=== PATIENT | female | born 1990 | race Hispanic/Latino ===

== ENCOUNTER 2021-01-05 14:18 | Outpatient (CLI) | payer MEDICAID, SELFPAY ==
--- NOTE | ~2021-01-05 | US_ITS ---
EXAMINATION: US OB <=14 wk fetus w TV EXAM DATE: 01/05/2021 15:06 INDICATION: Routine care. 1st trimester. TECHNIQUE: Pelvic obstetrical transabdominal and transvaginal sonogram was performed by a technologgloria piña. There are multiple grayscale and Doppler images available for interpretation. There are no luz maria ier studies of this gestation for comparison. FINDINGS: Uterus measures 11.9 x 8.7 x 7.7 cm, Is retroverted. There is intrauterine gestation sac. pole with heart rate confirmed at 165 beats per minute. The 3.2 cm crown-rump length correspon ds to estimated gestational age by ultrasound of 10 weeks 1 day, estimated date of confinement 2020. Yolk sac is identified. There is no sonographic evidence of subchorionic hemorrhage. The o varies are identified and are morphologically normal. Doppler flow confirmed within both ovaries. IMPRESSION: Retroverted uterus with live gestation, age by ultrasound 10 weeks 1 day. Reviewed, dictated and finalized at location A.
== END 2021-01-05 14:19 | disposition home or self-care (01) ==
LOC: ANHIMG 14:26
PROVIDERS: PCP Obstetrics & Gynecology; Visit Provider Physician Assistant
DX: O34.531 Maternal care for retroversion of gravid uterus, first trimester (principal); N85.4 Malposition of uterus
CPT/HCPCS: 76801; 76817

== ENCOUNTER 2021-04-13 10:16 | Outpatient (CLI) | payer OTHER, SELFPAY ==
--- NOTE | ~2021-04-13 | US_ITS ---
EXAMINATION: US OB /maternal detail EXAM DATE: 04/13/2021 11:49 INDICATION: Encntr for suprvsn norm preg, 2nd trimester. 2nd trimester. TECHNIQUE: Pelvic obstetrical transabdominal sonogram was performed by a technologist. There are mu ltiple grayscale and Doppler images available for interpretation. Comparison is made to prior examina tion from 01/05/2021. FINDINGS: There is a single fetus identified in vertex presentation with a heart rate of 131 beats pe r minute. The placenta is located in the posterior position. There is no sonographic evidence of ret roplacental hemorrhage identified. The amniotic fluid index is 20.5 centimeters, which is normal. The 5th -- 95th percentile range is 9.5-21.4 cm. BIOMETRIC DATA: Biparietal diameter (BPD): 5.9 cm ----------------> 24 weeks 1 day. Head circumference (HC): 21.7 cm ----------------> 23 weeks 5 days. Abdominal circumference (AC): 18.3 cm ----------> 23 weeks 1 day. Femur length (FL): 4.1 cm --------------------------> 23 weeks 1 day. These measurements are concordant. HC/AC ratio is 1.18 (The 5th -- 95th percentile range is 1.05-1.21. Estimated weight is 575 g +/- 86 g. This is the 10th percentile when the currently reported cl inical gestation age 24 weeks 1 day, clinical estimated date of delivery (COLTEN-OPE) 08/02 is used. Fet al estimated gestational age based on measurements from this exam is 23 weeks 4 days, with an estimat ed date of delivery (COLTEN-AUA) 08/06. ANATOMIC SURVEY: The following anatomy is identified and is sonographically normal in appearance: Cerebral ventricles Cerebellum Cisterna magna CTL-spine Four-chamber heart Diaphragm Stomach Kidneys Bladder Three-vessel cord Cord insertion Cavum septum pellucidum. The nuchal fold was suboptimally seen, but no thickening suspected. IMPRESSION: 1. Single fetus in vertex presentation with heart rate 131 beats per minute. 2. Estimated weight of 575 grams, 10th percentile using the currently reported clinical gestat ion age of 24 weeks 1 day, COLTEN(OPE) 08/02. 3. ANTONIO 20.5 cm, normal. 4. Visualized anatomy sonographically normal. Reviewed, dictated and finalized at location A. IMPRESSION: 1. Single fetus in vertex presentation with heart rate 131 beats per minute. 2. Estimated weight of 575 grams, 10th percentile using the currently re ported clinical gestation age of 24 weeks 1 day, COLTEN(OPE) 08/02. 3. ANTONIO 20.5 cm, normal. 4. Visualized anatomy sonographically normal.
== END 2021-04-13 10:17 | disposition home or self-care (01) ==
PROVIDERS: PCP Obstetrics & Gynecology; Visit Provider Physician Assistant
DX: Z34.92 Encounter for supervision of normal pregnancy, unspecified, second trimester (principal); Z3A.24 24 weeks gestation of pregnancy
CPT/HCPCS: 76805

== ENCOUNTER 2021-07-17 07:20 | Outpatient (RCR) | payer OTHER, SELFPAY ==
--- NOTE | ~2021-07-17 | US_ITS ---
EXAMINATION: US OB BPP wo non-stress DATE: 07/17/2021 09:51 CDT INDICATION: Gestational diabetes TECHNIQUE: Real-time transabdominal obstetric ultrasound. FINDINGS: Comparison to 04/13/2021 There is a single living fetus in vertex presentation. The placenta is posterior to the left without placenta previa. cardiac activity and movement is noted with a heart rate of 142 beats per minute. Biophysical profile: breathin of 2 movement: 2 of 2 tone: 2 of 2 Amniotic flud pocket: 2 of 2 Total score: 8 of 8 IMPRESSION: 1. Single living intrauterine in vertex presentation. 2: Total biophysical profile score of 8/8. Reviewed, dictated and finalized at location A.
[2021-07-17 08:36] VITALS: BP 121/81; PULSE 79
== END 2021-08-30 10:33 | disposition home or self-care (01) ==
LOC: ANHOBOP 07:20
PROVIDERS: PCP Physician Assistant; Visit Provider Obstetrics & Gynecology
DX: O24.419 Gestational diabetes mellitus in pregnancy, unspecified control (principal); Z3A.00 Weeks of gestation of pregnancy not specified
CPT/HCPCS: 59025; 76819

== ENCOUNTER 2021-07-23 06:57 | Inpatient (IN) | payer OTHER, SELFPAY ==
--- NOTE | 2021-07-22 22:44 | PM.IMHP ---
H&P: HPI History of Present Illness Date/Time: 07/22/21 22:44 31 y/o female presents for Repeat low-transverse section with bilateral tubal sterilization at 38wk4d. Patient had previous section and was going to have a repeat at [facility] in [place] with Maternal- Medicine however she desires bilateral tubal sterilization and was referred back to me to perform the repeat with her bilateral tubal sterilization @ 37-38 weeks I explained her condition procedure and risks involved including but not limited to bleeding infection injury to bladder bowel baby pelvic vessels DVT pneumonia wound infections endometriosis UTI hemorrhage so the risk of anesthesia she understands all this accepts and agrees to proceed. Her c/b deliveries by , MTHFR, GBS carrier, varicella non immune, gestational diabetes GDM A2, obesity. Following with [facility] for GDM, twice weekly antepartum testing. No concerns today. Having irregular contractions. Denies LOF, bleeding. +FM care began 12/14/2020 at [facility] she had a total of 13 visits with evaluated with non invasive testing negative for anomalies screens ultrasounds normal interval growth GDM positive controlled with insulin GBS positive She understands tubal sterilization is permanent irreversible she does not desire future fertility she understands failure rate of 3 to 01/1000 with increased risk of ectopic and its sequelae she understands accepts and agrees to proceed informed consent obtained [place] [employer] Public [employer] tubal consent forms have been signed and are in chart. Chief Complaint: previous section desires repeat section multiparity desires bilateral tubal sterilization Gestational diabetes class A2 on insulin high-risk specialist desires delivery 37-38 weeks Review of Systems Review of Systems: All systems reviewed & are unremarkable except as noted in HPI and below Constitutional: Constitutional: Reports no additional constitutional complaints Eyes: Eyes: Reports no additional eye complaints ENT: Reports system reviewed and no additional complaints, except as documented Cardiovascular: Cardiovascular: Reports no additional cardiovascular complaints Respiratory: Respiratory: Reports no additional respiratory complaints Gastrointestinal: Gastrointestinal: Reports no additional gastrointestinal complaints Genitourinary: Genitourinary: Reports no additional female genitourinary complaints Musculoskeletal: Musculoskeletal: Reports no additional musculoskeletal complaints Integumentary/Breasts: Skin/Breast: Reports system reviewed and no additional complaints, except as docu Neurologic: Reports system reviewed and no additional complaints, except as documented Psychiatric: Psychiatric: Reports no additional psychiatric complaints Endocrine: Endocrine: Reports no additional endocrine complaints Hematologic/Lymphatic: Hematologic/Lymphatic: Reports no additional hematologic/lymphatic complaints Allergic/Immunologic: Allergic/Immunologic: Reports no additional allergic/immunologic complaints PMFSH Past Medical History Medical History Anemia affecting Bacterial vaginosis Candidiasis of vagina Encounter for female sterilization procedure External hordeolum GBS (group B Streptococcus carrier), +RV culture, currently Gestational diabetes mellitus, class A2 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 M, 9lbs, Repeat Delivery by section 02-16-2016, 39.3 wks 1. F, 8lbs, Repeat Rickyi
--- NOTE | 2021-07-22 22:51 | WPDOBADMIT ---
Obstetrics - Admit Note Admission Note: record reviewed. No pertinent additions to the history and/or any subsequent changes in the physical findings that are not consistent with the expected course of the were found. Additions to the history and/or subsequent changes in the physical findings follow. None. 07/22/21 22:44 31 y/o female presents for Repeat low-transverse section with bilateral tubal sterilization at 38wk4d. Patient had previous section and was going to have a repeat at [facility] in [place] with Maternal- Medicine however she desires bilateral tubal sterilization and was referred back to me to perform the repeat with her bilateral tubal sterilization @ 37-38 weeks I explained her condition procedure and risks involved including but not limited to bleeding infection injury to bladder bowel baby pelvic vessels DVT pneumonia wound infections endometriosis UTI hemorrhage so the risk of anesthesia she understands all this accepts and agrees to proceed. Her c/b deliveries by , MTHFR, GBS carrier, varicella non immune, gestational diabetes GDM A2, obesity. Following with [facility] for GDM, twice weekly antepartum testing. No concerns today. Having irregular contractions. Denies LOF, bleeding. +FM care began 12/14/2020 at [facility] she had a total of 13 visits with evaluated with non invasive testing negative for anomalies screens ultrasounds normal interval growth GDM positive controlled with insulin GBS positive She understands tubal sterilization is permanent irreversible she does not desire future fertility she understands failure rate of 3 to 01/1000 with increased risk of ectopic and its sequelae she understands accepts and agrees to proceed informed consent obtained [place] department [employer] Public aid tubal consent forms have been signed and are in chart.
[2021-07-23] VITALS (48 sets, daily range): BP systolic 82–118; BP diastolic 40–61; PULSE 35–81; RESP 16–20; TEMP 35.9–36.6; O2SAT 89–100; BMI 37.1
--- NOTE | 2021-07-23 03:24 | P.HPUP_ITS ---
History and Physical Update Update Date/Time: 07/22/21 22:52 History and Physical has been reviewed, including an updated exam of the patient. There are NO changes in the patient's condition. Risks, benefits, and alternatives have been discussed and questions answered. Patient agrees to proceed with procedure. 07/22/21 22:44 31 y/o female presents for Repeat low-transverse section with bilateral tubal sterilization at 38wk4d. Patient had previous section and was going to have a repeat at [facility] in [place] with Maternal- Medicine however she desires bilateral tubal sterilization and was referred back to me to perform the repeat with her bilateral tubal sterilization @ 37-38 weeks I explained her condition procedure and risks involved including but not limited to bleeding infection injury to bladder bowel baby pelvic vessels DVT pneumonia wound infections endometriosis UTI hemorrhage so the risk of anesthesia she understands all this accepts and agrees to proceed. Her c/b deliveries by , MTHFR, GBS carrier, varicella non immune, gestational diabetes GDM A2, obesity. Following with [facility] for GDM, twice weekly antepartum testing. No concerns today. Having irregular contractions. Denies LOF, bleeding. +FM care began 12/14/2020 at [facility] she had a total of 13 visits with evaluated with non invasive testing negative for anomalies screens ultrasounds normal interval growth GDM positive controlled with insulin GBS positive She understands tubal sterilization is permanent irreversible she does not desire future fertility she understands failure rate of 3 to 01/1000 with increased risk of ectopic and its sequelae she understands accepts and agrees to proceed informed consent obtained [place] department [employer] Public aid tubal consent forms have been signed and are in chart.
[2021-07-23] MEDS: LACTATED RINGERS 1,000 ML 125 ML IV CONT (08:27)
--- NOTE | 2021-07-23 08:40 | PC.NURSE ---
This patient, Lora Patel, was admitted to OB Post 116 on 07/23/21 at 06:57. Plans for , pain management and were discussed with patient. Patient/family oriented to hospital policies and general routines including ID bracelet, bed and alarms, visiting hours, pain management, procedures, bathroom and other care routines, personal items, smoking policy, room service/diet and guest tray routines, security routines, and visiting hours. Patient/Family are encouraged to report perceived risks to care and to ask questions if they do not understand what they are told or what they should do. See OBIX
[2021-07-23 09:05] LABS: Basophils Percent Auto 0.3 % (0.2-1.2); Eosinophils Absolute Auto 0.1 K/mm3 (0-0.3); Hematocrit 34.7 % (37.0-47.0); Hemoglobin 10.8 g/dL (12.0-15.0); Immature Granulocyte Absolute 0.04 K/mm3 (0.00-0.031); Immature Granulocyte Percent A 0.7 % (0-0.5); Immature Platelet Fraction Pct 14.4 % (0.9-11.2); Lymphocytes Absolute Auto 1.66 K/mm3 (0.9-3.2); Lymphocytes Percent Auto 27.7 % (18.3-44.2); Mean Corpuscular HGB Conc 31.1 g/dl (32-36); Mean Corpuscular Hemoglobin 26.2 pg (26-34); Mean Corpuscular Volume 84.2 fl (80-100); Mean Platelet Volume 12.9 fl (7.4-10.4); Monocytes Absolute Auto 0.4 K/mm3 (0.1-0.6); Monocytes Percent Auto 5.8 % (2.6-8.5); Neutrophils Absolute Auto 3.9 K/mm3 (1.3-6.7); Neutrophils Percent Auto 64.5 % (45.5-73.1); Platelet Count Result 173 k/mm3 (150-375); Red Blood Count 4.12 M/mm3 (4.2-5.4); Red Cell Distribution Width 14.5 % (11.5-14.5)
--- NOTE | 2021-07-23 09:15 | PM.OBPRVD ---
OB - Delivery Note Procedure Delivery date: 07/23/21 Procedure: Procedures Operation Date: 07/23/21 09:00 repeat low transverse section with delivery of viable male and placenta. bilateral tubal sterilization with complete bilateral salpingectomy. events: Previous and Gestational Diabetes ( GDM A2 on insulin) Intrapartal events: None and Other ( desires sterilization) Induction method: none Route of delivery: ( repeat low-transverse) Episiotomy description: None Laceration Description: None Specimen: Yes ( placenta cord blood and cord blood gases) Quantitative Blood Loss (ml): 370 Anesthesia type: Spinal ( spinal Duramorph) Disposition: floor Complications: none Narrative: see detailed procedure note Baby Date of : 07/23/21 Time of : 10:15 Weeks of gestation at delivery: 38 Infant gender: Male Weight (pounds): 7 Weight (ounces): 2 presentation: vertex position: Left Occiput Anterior Placenta delivery description: Manual Removal and Normal Configuration cord vessel description: 3 Vessels score one minute: 9 score five minutes: 9 Narrative: normal transition to nursery taken in stable condition. Normal exam
--- NOTE | 2021-07-23 09:18 | W.PM.PROC2 ---
Procedure Note - Detailed Date of Procedure 07/23/21 Pre-op Diagnosis elective repeat section female sterilization gestational diabetes A2 on insulin GBS positive MTHFR mutation recurrent loss maternal varicella nonimmune Anemia affect in Post-op Diagnosis same ( elective repeat section- delivered female sterilization gestational diabetes A2 on insulin GBS positive MTHFR mutation recurrent loss maternal varicella nonimmune Anemia affect in ) Procedure Performed Repeat low-transverse section with delivery of viable male infant and placenta. Bilateral tubal sterilization with complete bilateral salpingectomy. Surgeon Say Garcia MD [employer] Edwige Figueroa, certified surgical technician and JEYSON Ramirez student Anesthesia spinal ( Duramorph) Indications previous and desires repeat . Desires bilateral tubal sterilization Findings viable male infant delivered at 10:15 a.m. on 07/23/2021. weighed 7 lb 2 oz. score at 1 minute 9 at 5 minutes 9 normal transition in nursery in stable condition. placenta delivered intact with three-vessel cord clear amniotic fluid at time of delivery uterus, tubes and ovaries normal. Cul-de-sac of any blood clots. pedicles hemostatic after sterilization procedure quantitative blood loss: 370 mL IV fluids: 1000 mL normal saline Geronimo catheter output: 200 counts correct. Ancef 3 g VTE prevention SCDs no complications. patient taken to recovery room Description of Procedure patient was consented and taken operating room for desired repeat low-transverse section and bilateral tubal sterilization. She was placed in the sitting position and spinal anesthetic was administered. Patient was placed in the supine position a Geronimo catheter is inserted. The abdomen was draped in sterile fashion. A time-out was performed. Sterile drapes were placed. An elliptical incision was performed on the old incision site. The old scar was removed using electrocautery bilaterally. The [place] clamps were placed on the lateral fashion to identify the superior and inferior abdominal fashion to undermine with electrocautery. Next the rectus muscles were incised in the midline using electrocautery the peritoneum was digitally dissected. Confirmation of the vertex incision of the fetus. Followed by low transverse incision to the lower uterus followed by bilateral cautery. The amniotic sac was manually broken with clear amniotic fluid identified. Fundal pressure was used delivery of vertex fetus to the abdominal incision. The was placed on maternal abdomen the cord was cut and clamped, the mouth was suctioned, spontaneous respirations and cry. then the baby was handed to nursery nurse in attendance. The was delivered at on 07/23/2021 at 10 15 a.m.. Male weighing 7 lb 2 oz , scores at 1 minute 9 and 5 minutes 9. normal transition from intrauterine to extrauterine environment. Normal exam and taken to nursery in stable condition. the placenta was delivered with 3 vessel cord intact, cord blood and cord blood gases were obtained. The uterus was externalized blood clots removed from her intrauterine cavity. The uterus contracted normally is Pitocin given intravenously and 10 units injection of the myometrium. the uterine incision was repaired with 2 layers of 0 Vicryl in a running interlocking fashion. The 2nd stage was an imbricating stitch overlying the 1st. the bilateral tubal sterilization was performed in a bilateral sequential fashion using following techniques. The fallopian tubes were traced out to the fimbriated aspect. the mesosalpinx was endo coagulated. Clamps were placed across the proximal fallopian tubes, the arcuate vessel and the fimbria ovarian vessel, electrocautery was used to excise the fallopian tubes bilaterally. These were handed off for pathol
--- NOTE | 2021-07-23 09:20 | PC.NURSE ---
Nehemias translation line called for screening questions and to verify with pt while alone that she wants to do all translation for her.
--- NOTE | 2021-07-23 09:24 | WPDANESEPPF ---
Anes - Initial Pre Proc Eval Procedure: Operation Date: 07/23/21 09:00 Proposed Procedures p Repeat Section with Bilateral Salpingectomy - Say Garcia MD Date/Time: 07/23/21 09:24 Surgeon: Say Garcia MD Pre Op Diagnosis: C/S Patient Data Age: 31 Gender: F Height: 1.68 m Weight: 104.5 kg Last Vital Signs Pulse 70 07/23/21 08:15 BP 102/58 L 07/23/21 08:15 Allergies Allergy/AdvReac Type Severity Reaction Status Date / Time No Known Allergies Allergy Verified 07/23/21 07:41 Home Medications Medication Instructions Recorded Confirmed Type insulin NPH isoph U-100 human 10 unit SUBCUT HS 07/23/21 07/23/21 History [Humulin N NPH Insulin KwikPen] metformin 500 mg PO BID 07/23/21 07/23/21 History Laboratory Tests 07/23/21 07/23/21 07/23/21 08:06 08:06 08:21 WBC 6.0 K/mm3 K/mm3 (4.5-10.0) RBC 4.12 M/mm3 L M/mm3 (4.2-5.4) Hgb 10.8 g/dL L g/dL (12.0-15.0) Hct 34.7 % L % (37.0-47.0) MCV 84.2 fl fl (80-100) MCH 26.2 pg pg (26-34) MCHC 31.1 g/dl L g/dl (32-36) RDW 14.5 % % (11.5-14.5) Plt Count 173 k/mm3 k/mm3 (150-375) MPV 12.9 fl H fl (7.4-10.4) Immature Gran % (Auto) 0.7 % H % (0-0.5) Neut % (Auto) 64.5 % % (45.5-73.1) Lymph % (Auto) 27.7 % % (18.3-44.2) Stevens % (Auto) 5.8 % % (2.6-8.5) Eos % (Auto) 1.0 % % (0-4.4) Baso % (Auto) 0.3 % % (0.2-1.2) Lymph # (Auto) 1.66 K/mm3 K/mm3 (0.9-3.2) Stevens # (Auto) 0.4 K/mm3 K/mm3 (0.1-0.6) Eos # (Auto) 0.1 K/mm3 K/mm3 (0-0.3) Baso # (Auto) 0.0 K/mm3 K/mm3 (0.0-0.1) Abs Immat Gran (auto) 0.04 K/mm3 H K/mm3 (0.00-0.031) Absolute Neuts (auto) 3.9 K/mm3 K/mm3 (1.3-6.7) Absolute Nucleated RBC 0.0 K/mm3 K/mm3 (0.0-0.012) Nucleated RBC % 0.0 % % (0.0-0.2) % Immature Plt Fraction 14.4 % H % (0.9-11.2) RPR Pending HIV 1&2 Ab/P24 Ag 4thGn Pending Patient hx anesthesia problems: none Family hx anesthesia problems: none Results Review: All pre-operative results and documents have been reviewed as part of the pre-operative evaluation. FORMERLY [facility], [facility] Past Medical History Medical History Anemia affecting Bacterial vaginosis Candidiasis of vagina Encounter for female sterilization procedure External hordeolum GBS (group B Streptococcus carrier), +RV culture, currently Gestational diabetes mellitus, class A2 Heterozygous MTHFR mutation [id number] Maternal varicella, non-immune Recurrent loss UTI (urinary tract infection) Surgical History Surgical History Delivery by section 08-27-2018, 38 wks 1. M, 9lbs, Repeat Delivery by section 02-16-2016, 39.3 wks 1. F, 8lbs, Repeat Delivery by section 02-18-2014, 40 wks 1. F, Repeat Delivery by section 12-19-2011, 40 wks 1. M, Repeat Previous section complicating 09-10-2009 1. F, Primary Family History Family History Mother Diabetes mellitus Social History Social History Smoking status: Never smoker Anes - Eval Final PreProcedure Day of Procedure 07/23/21 09:24 Patient weight: obese Heart: regular rate and rhythm Lungs: clear to auscultation Airway: Mallampati scale class III Neurological: other (alert) Last oral intake: >/= 8 hours ASA classification: III Emergent: no Anesthetic plan: proceed Anesthesia type and monitoring: regional spinal and standard monitoring Other findings: interview per pharmacist
[2021-07-23 09:27] LABS: HIV 1/2 Ab P24 Ag Result Negative (Negative)
[2021-07-23 09:32] LABS: Glucose Point of Care 79 mg/dl (65-105)
[2021-07-23] MEDS: ceFAZolin 2 GM/D5W 50 ML 2 GM/50 ML BAG IVPB (09:50)
--- NOTE | 2021-07-23 09:50 | PC.NURSE ---
Pt to OR per stretcher.
[2021-07-23] MEDS: OXYTOCIN 10 UNITS/ML VIAL IM (10:17)
[2021-07-23] MEDS: MORPHINE SULFATE (*CRX) 2 MG/ML INJ 3 MG IV PUSH ×3 (11:27→13:02)
[2021-07-23] MEDS: KETOROLAC 30 MG/ML VIAL (*BKC) IV PUSH ×3 (11:50→23:47)
[2021-07-23 12:02] LABS: Rapid Plasma Reagin Non-Reactive (NonReactive)
[2021-07-23] MEDS: OXYTOCIN 30 UNITS/NS 500 ML 30 UNITS/500 ML BAG 125 UNITS IV CONT (13:02)
--- NOTE | 2021-07-23 13:20 | OBPPTRN ---
Patient transferred to post room # 286 via stretcher. Support person present. Oriented to unit, room, information board, rooming in, admission packet and security measures. Patient verbalizes understanding.
[2021-07-23] MEDS: DEXTROSE 5%/0.45% SOD CHL 1,000 ML 125 ML IV CONT (17:35)
[2021-07-23] MEDS: DOCUSATE SODIUM 100 MG CAPSULE PO (17:35)
[2021-07-23] MEDS: HYDROcodone/acetaminophen (*CRX) 5-325 MG TABLET 1 TAB PO (20:00)
[2021-07-24 03:35] VITALS: BP 103/57; PULSE 79; RESP 16; TEMP 36.1
[2021-07-24] MEDS: HYDROcodone/acetaminophen (*CRX) 5-325 MG TABLET 1 TAB PO ×3 (03:44→18:29)
[2021-07-24 04:45] LABS: Basophils Percent Auto 0.2 % (0.2-1.2); Eosinophils Absolute Auto 0.1 K/mm3 (0-0.3); Eosinophils Percent Auto 1.3 % (0-4.4); Hematocrit 32.4 % (37.0-47.0); Hemoglobin 10.1 g/dL (12.0-15.0); Immature Granulocyte Absolute 0.01 K/mm3 (0.00-0.031); Immature Granulocyte Percent A 0.2 % (0-0.5); Lymphocytes Absolute Auto 1.39 K/mm3 (0.9-3.2); Mean Corpuscular HGB Conc 31.2 g/dl (32-36); Mean Corpuscular Hemoglobin 26.3 pg (26-34); Mean Corpuscular Volume 84.4 fl (80-100); Mean Platelet Volume 12.7 fl (7.4-10.4); Monocytes Absolute Auto 0.3 K/mm3 (0.1-0.6); Monocytes Percent Auto 5.4 % (2.6-8.5); Neutrophils Absolute Auto 3.8 K/mm3 (1.3-6.7); Neutrophils Percent Auto 67.9 % (45.5-73.1); Platelet Count Result 135 k/mm3 (150-375); Red Blood Count 3.84 M/mm3 (4.2-5.4); Red Cell Distribution Width 14.4 % (11.5-14.5); White Blood Count 5.6 K/mm3 (4.5-10.0)
[2021-07-24 08:00] VITALS: BP 101/56; PULSE 87; RESP 22; TEMP 36.6; O2SAT 100
[2021-07-24] MEDS: MULTIVIT/MIN/PREN/FOL AC/IRON TABLET 1 TAB PO (08:38)
[2021-07-24] MEDS: DOCUSATE SODIUM 100 MG CAPSULE PO ×2 (08:38→16:30)
[2021-07-24] MEDS: IBUPROFEN 600 MG TABLET PO ×2 (08:38→16:30)
[2021-07-24] MEDS: HYDROcodone/acetaminophen (*CRX) 10-325 MG TABLET 1 TAB PO (08:44)
[2021-07-24] MEDS: SIMETHICONE 80 MG TAB.CHEW PO ×2 (08:58→18:30)
--- NOTE | 2021-07-24 09:52 | PM.OBPNVD ---
OB - PN: Subj Subjective Date/time seen: 07/24/21 09:52 Patient comments: no complaints, incisional pain, tolerating diet and flatus present [place] baby status: doing well and nursing well feeding status: exclusively breast feeding OB - PN: Obj Data Labs CBC & Chem 7: 07/24/21 03:34 Labs: Laboratory Results - last 24 hr 07/23/21 07/23/21 07/24/21 08:06 08:06 03:34 WBC 5.6 RBC 3.84 L Hgb 10.1 L Hct 32.4 L MCV 84.4 MCH 26.3 MCHC 31.2 L RDW 14.4 Plt Count 135 L MPV 12.7 H Immature Gran % (Auto) 0.2 Neut % (Auto) 67.9 Lymph % (Auto) 25.0 [place] % (Auto) 5.4 Eos % (Auto) 1.3 Baso % (Auto) 0.2 Lymph # (Auto) 1.39 [place] # (Auto) 0.3 Eos # (Auto) 0.1 Baso # (Auto) 0.0 Abs Immat Gran (auto) 0.01 Absolute Neuts (auto) 3.8 Absolute Nucleated RBC 0.0 Nucleated RBC % 0.0 RPR Non-reactive Blood Type O Positive Antibody Screen Negative OB - PN A/P Assessment and Plan (1) Term delivered: Code(s): O80 - Encounter for full-term uncomplicated delivery Status: Acute (2) S/P repeat low transverse : Code(s): Z98.891 - History of uterine scar from previous surgery Status: Acute (3) Maternal varicella, non-immune: Code(s): O09.899 - Supervision of other high risk pregnancies, unspecified trimester; Z28.3 - Underimmunization status Status: Acute (4) Encounter for female sterilization procedure: Code(s): Z30.2 - Encounter for sterilization Status: Acute (5) Gestational diabetes mellitus, class A2: Code(s): O24.419 - Gestational diabetes mellitus in , unspecified control Status: Acute (6) 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: Code(s): Z15.89 - Genetic susceptibility to other disease Status: Acute Plan day: 1 Plan: routine care, discharge home (07/25/21) and follow up 6 weeks (3w) Time Spent With Patient Time: Total time spent is greater than 50% in coordination of care (as documented) at patient's floor/unit and/or counseling patient: Time with patient: less than 15 minutes Review of Systems Review of Systems: All systems reviewed & are unremarkable except as noted in HPI and below Exam Const: General: cooperative, healthy appearing, comfortable, no acute distress, well developed, alert and awake Nutritional Appearance: average body habitus Orientation/consciousness: patient oriented x3 Limitations: no limitations HENMT: Head: normal to inspection Eyes: General: appearance normal, both eyes and all related structures Neck: Neck: normal visual inspection Chest: Chest palpation & inspection: normal inspection of the chest Resp: Effort & Inspection: normal respiratory effort Auscultation: clear to auscultation bilaterally Cardio: Rate: regular rate Rhythm: regular rhythm GI: Inspection: normal to inspection and incision (ddi) GI Palp: Yes Soft to palpation Percussion: Yes normal to percussion Auscultation: normal bowel sounds : External Female Exam: normal external appearance Bimanual exam- vagina & uterus: non-tender Back/Spine/Pelvis: Back: no CVA tenderness Skin: General skin exam: normal color and no rashes or lesions noted Neuro: General: patient oriented x3, gait normal, tone normal, moves all extremities and Normal light touch and pain sensation Extrem: General: normal to inspection and full ROM Psych: Appearance: grossly normal Mental Status: mental status grossly normal Speech and movement: Normal speech and movement present Affect: normal affect Attitude: cooperative Thought process: Normal thought process present Thought content: Yes Normal thought content present Insight: Good insight present (Psych) Judgement: Good judgement present (Psych)
--- NOTE | 2021-07-24 12:05 | WPDANLDNPN2 ---
Anes-Prog Note L&D-Neuraxial Date/Time: 07/24/21 12:05 Neuraxial medications: intrathecal PF morphine Opiod-related complaints: none Patient feedback: Patient satisfied with post-operative pain management.
--- NOTE | 2021-07-24 12:05 | WPDANLDPN2 ---
Anes-Prog Note L&D Date/Time: 07/24/21 12:05 Neuraxial method: spinal Epidural/Spinal procedure site: clean & non-tender Neuro status: Neuro function grossly intact. Cardiovascular status: normal Respiratory status: normal Airway patency: baseline Mental status: baseline Post-Op hydration status: normal Vital Signs: Last Vital Signs Temp 36.6 C 07/24/21 08:00 Pulse 87 07/24/21 08:00 Resp 22 H 07/24/21 08:00 BP 101/56 L 07/24/21 08:00 Pulse Ox 100 07/24/21 08:00 Pain score (VAS): 0 I/O: Intake & Output 07/23/21 07/24/21 07/24/21 23:59 07:59 15:59 Intake Total 300 700 Output Total 125 1100 400 Balance 175 -400 -400 Post-procedural complaints: none Patient feedback: Patient satisfied with anesthetic care.
--- NOTE | 2021-07-24 17:00 | PC.NURSE ---
abdominal binder placed on pt
[2021-07-24 20:30] VITALS: BP 100/52; PULSE 73; RESP 16; TEMP 36.9; O2SAT 98
[2021-07-25] MEDS: IBUPROFEN 600 MG TABLET PO ×2 (00:05→10:03)
[2021-07-25] MEDS: SIMETHICONE 80 MG TAB.CHEW PO ×2 (00:06→10:03)
[2021-07-25] MEDS: HYDROcodone/acetaminophen (*CRX) 10-325 MG TABLET 1 TAB PO ×2 (00:06→10:02)
[2021-07-25 08:57] VITALS: BP 106/66; PULSE 75; RESP 16; TEMP 36.4; O2SAT 99
[2021-07-25] MEDS: MULTIVIT/MIN/PREN/FOL AC/IRON TABLET 1 TAB PO (10:02)
[2021-07-25] MEDS: DOCUSATE SODIUM 100 MG CAPSULE PO (10:03)
--- NOTE | 2021-07-25 11:50 | PC.NURSE ---
Discharge instructions given via translation assistance of pt's significant other. Offered language translation line for discharge instructions, but pt consented to her significant other translating.
--- NOTE | 2021-07-26 07:58 | PM.OBDSVD ---
DS: Admitting Diagnosis Discharge Date 07/25/21 Admitting Diagnosis (1) 38 weeks gestation of : Code(s): Z3A.38 - 38 weeks gestation of Status: Acute (2) Previous section complicating : Code(s): O34.219 - Maternal care for unspecified type scar from previous delivery Status: Acute (3) Delivery by section: Status: Acute (4) Gestational diabetes mellitus, class A2: Code(s): O24.419 - Gestational diabetes mellitus in , unspecified control Status: Acute (5) Heterozygous MTHFR mutation [id number]: Code(s): Z15.89 - Genetic susceptibility to other disease Status: Acute (6) Encounter for female sterilization procedure: Code(s): Z30.2 - Encounter for sterilization Status: Acute (7) GBS (group B Streptococcus carrier), +RV culture, currently : Code(s): O99.820 - Streptococcus B carrier state complicating Status: Acute (8) Anemia affecting : Code(s): O99.019 - Anemia complicating , unspecified trimester Status: Acute (9) Maternal varicella, non-immune: Code(s): O09.899 - Supervision of other high risk pregnancies, unspecified trimester; Z28.3 - Underimmunization status Status: Acute (10) 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89 - Genetic susceptibility to other disease Status: Acute (7) Previous section complicating : Code(s): O34.219 - Maternal care for unspecified type scar from previous delivery Status: Acute (8) 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 Status: Acute (9) Maternal varicella, non-immune: Code(s): O09.899 - Supervision of other high risk pregnancies, unspecified trimester; Z28.3 - Underimmunization status Status: Acute (10) Anemia affecting : Code(s): O99.019 - Anemia complicating , unspecified trimester Status: Acute (11) GBS (group B Streptococcus carrier), +RV culture, currently : Code(s): O99.820 - Streptococcus B carrier state complicating Status: Acute OB - DS: Summary Hospital Course Time spent discussing smoking cessation with patient: 3 to 10 minutes OB Procedures : NST and Ultrasound OB Procedures Intrapartum: (Repeat) low cervical, transverse and Tubal ligation (Bilateral salpingectomy, complete) OB Procedures: : P.P. tubal ligation and Rubella lg Peripartum Data Delivery Method: Section Laceration Description: None Episiotomy description: None Procedures: Procedures Operation Date: 07/23/21 09:00 Actual Procedure Side Surgeon p Repeat Section with Bilateral Salpingectomy Say Garcia MD complications: none 1: Gender: Male Disposition of : home Status at Discharge Cognitive/behavioral status at discharge: Normal Functional status at discharge: independent ambulation Overall status at discharge: patient is back to baseline Time Spent with Patient Time attestation: Total time spent providing and/or coordinating disch
== END 2021-07-25 11:51 | disposition home or self-care (01) | DRG 540 ==
LOC: ANHOBPP 07:05 → ANHLDR 10:28 → ANHOB2 13:25
PROVIDERS: Admitting Provider Obstetrics & Gynecology; PCP Physician Assistant; Visit Provider Obstetrics & Gynecology
PROC: 10D00Z1 Extraction of Products of Conception, Low, Open Approach (ICD-10-PCS; CPT 59514; principal; 2021-07-23 09:00)
DX: O34.211 Maternal care for low transverse scar from previous cesarean delivery (principal); Z30.2 Encounter for sterilization; O99.284 Endocrine, nutritional and metabolic diseases complicating childbirth; E72.12 Methylenetetrahydrofolate reductase deficiency; O99.824 Streptococcus B carrier state complicating childbirth; O99.214 Obesity complicating childbirth; E66.9 Obesity, unspecified; O99.02 Anemia complicating childbirth; D64.9 Anemia, unspecified; O24.424 Gestational diabetes mellitus in childbirth, insulin controlled; Z3A.38 38 weeks gestation of pregnancy; Z37.0 Single live birth; Z23 Encounter for immunization
CPT/HCPCS: 36415; 82948; 85025; 85055; 86592; 86703; 86850; 86900; 86901; 88302; 88307; 90471; 90653; A9270; G0008; G0432; J0131; J0690; J1200; J1885; J2270; J2274; J2370; J2405; J2590; J7120

== ENCOUNTER 2023-10-26 12:34 | Emergency (ER) | payer SELFPAY ==
--- NOTE | ~2023-10-26 | XR_ITS ---
XR lumbar spine 2-3V DATE: 10/26/2023 16:31 INDICATION: Right sciatic pain TECHNIQUE: AP, lateral, coned lateral lumbosacral views COMPARISON: None FINDINGS: There is minimal levoscoliosis of the lumbar spine. Included lower thoracic and lumbar pedi cles are intact. No fracture or bone destruction or spondylolisthesis. Lumbar and lumbosacral intersp aces are well preserved. The sacroiliac joints are intact. IMPRESSION: Minimal levoscoliosis; otherwise negative Reviewed, dictated and finalized at location L. [facility] C[facility] DIRECTOR
[2023-10-26 13:04] VITALS: BP 114/63; PULSE 60; RESP 16; TEMP 36.4; O2SAT 98
[2023-10-26] MEDS: KETOROLAC (*BKC) 60 MG/2 ML VIAL IM (14:22)
[2023-10-26] MEDS: diazePAM (*CRX) 5 MG TABLET PO (14:22)
--- NOTE | 2023-10-26 15:32 | ED.LOWEXIN ---
HPI - Extremity Injury (Lower) General Chief Complaint: Extremity Injury, Lower Stated Complaint: right hip pain Time Seen by Provider: 10/26/23 13:37 History of Present Illness HPI Narrative: Patient is a 33-year-old female who presents ER with right-sided back pain. Right lower back extending into the buttock and side of the leg. No numbness or tingling. Worse with walking and bending. No known trauma. No urinary symptoms. Denies focal weakness. She has tried [id number] pain medication without improvement. Related Data Home Medications Medication Instructions Recorded Confirmed metformin 500 mg tablet,extended 500 mg PO BID 07/23/21 07/23/21 release 24 hr Allergies Allergy/AdvReac Type Severity Reaction Status Date / Time No Known Allergies Allergy Verified 10/26/23 13:27 Review of Systems Review of Systems: All systems reviewed & are unremarkable except as noted in HPI and below Musculoskeletal: Musculoskeletal: Reports back pain, Denies arthralgias and Denies joint swelling Neurologic: Denies focal weakness and Denies numbness PMFSH Past Medical History Medical History Anemia affecting Bacterial vaginosis Candidiasis of vagina Encounter for female sterilization procedure External hordeolum GBS (group B Streptococcus carrier), +RV culture, currently Gestational diabetes mellitus, class A2 Heterozygous MTHFR mutation [id number] Maternal varicella, non-immune Recurrent loss UTI (urinary tract infection) Surgical History Surgical History Delivery by section 08-27-2018, 38 wks 1. M, 9lbs, Repeat Delivery by section 02-16-2016, 39.3 wks 1. F, 8lbs, Repeat Delivery by section 02-18-2014, 40 wks 1. F, Repeat Delivery by section 12-19-2011, 40 wks 1. M, Repeat Previous section complicating 09-10-2009 1. F, Primary Family History Family History Mother Diabetes mellitus Social History Social History Smoking status: Never smoker Exam Narrative: GENERAL: Uncomfortable-appearing, well-nourished, and in no acute distress. HEAD: Normocephalic, atraumatic. back: No midline tenderness at T/L-spine. There is right-sided paraspinal muscle tenderness in the lumbar and SI region. EXTREMITIES: Normal range of motion. No edema. SKIN: Warm, dry, no rash. NEURO: Alert and oriented x3. PSYCH: Normal mood and affect. Course Course Emergency Course: Moderate improvement pain with Toradol and Valium. Discussed anti-inflammatories muscle relaxers at home. Also discussed imaging results. Discussed need for follow-up with PCP and possible physical therapy. Vital Signs Vital signs: Vital Signs Temperature 97.6 F 10/26/23 13:04 Pulse Rate 60 10/26/23 13:04 Respiratory Rate 16 10/26/23 13:04 Blood Pressure 114/63 10/26/23 13:04 Pulse Oximetry 98 10/26/23 13:04 Oxygen Delivery Room Air 10/26/23 13:04 Temperature 97.6 F 10/26/23 13:04 Pulse Rate 60 10/26/23 13:04 Respiratory Rate 16 10/26/23 13:04 Blood Pressure 114/63 10/26/23 13:04 Pulse Oximetry 98 10/26/23 13:04 Oxygen Delivery Room Air 10/26/23 13:04 MDM - Extremity Injury (Lower) Imaging Data Radiologist's impression: ITS Impressions Lumbar Spine X-Ray 10/26/23 16:31 IMPRESSION: Minimal levoscoliosis; otherwise negative Discharge Plan Discharge Clinical Impression: Sciatica Patient Disposition: Home, Self-Care Condition: Stable Instructions: Antibiotic Form Additional Instructions: Please return to the emergency department if you develop severe pain that is not con
== END 2023-10-26 17:55 | disposition home or self-care (01) ==
PROVIDERS: Emergency Provider Emergency Medicine; PCP Physician Assistant
DX: M54.42 Lumbago with sciatica, left side (principal); Z87.440 Personal history of urinary (tract) infections
CPT/HCPCS: 72100; 96372; 99283; A9270; J1885